=== PATIENT | male | born 1950 | race Caucasian/White ===

== ENCOUNTER 2022-05-08 16:17 | Emergency (ER) | payer OTHER, SELFPAY ==
[2022-05-08 16:40] VITALS: BP 164/90; PULSE 66; RESP 18; TEMP 36.4; O2SAT 97; BMI 25.0
--- NOTE | 2022-05-08 16:47 | DI.CT.S_ITS ---
PROCEDURE: CT FACIAL BONES WO CON INDICATIONS: facial trauma TECHNIQUE: Noncontrast 2.5 mm thick axial images acquired from the mandible through the frontal sinuses, with coronal and sagittal reformatting. For radiation dose reduction, the following was used: automated exposure control, adjustment of mA and/or kV according to patient size. COMPARISON: None. FINDINGS: Image quality: Excellent. Bones and teeth: Orbital patel are intact. Sinus patel show no fracture or deformity. Nasal bones and septum are intact. Visualized portions of the mandible demonstrate no fractures or subluxation. Zygomatic arches are intact. Pterygoid plates are intact. Visualized portions of the skull base and auditory canals are intact. Sinuses: Paranasal sinuses are aerated, without fluid levels, mucosal thickening, or mucoceles. Mastoid air cells are aerated. Soft tissues: No edema, masses, or fluid collections. No enlarged lymph nodes. No soft tissue lacerations or debris. Vascular: Visualized vascular structures appear normal in the absence of contrast. Bony vascular foramina and canals are intact. IMPRESSION: 1. No visible facial fractures. 2. No suspicious soft tissue or sinus fluid collections. Dictated by: Irina Floyd M.D. on 05/08/2022 at 17:54 Approved by: Irina Floyd M.D. on 05/08/2022 at 17:58
--- NOTE | 2022-05-08 17:06 | DI.CT.S_ITS ---
PROCEDURE: CT HEAD/BRAIN WO CON INDICATIONS: head injury, headache, nauseated TECHNIQUE: Noncontrast 4.5 mm thick angled axial sections acquired from the foramen magnum to the vertex, with coronal and sagittal reformats. For radiation dose reduction, the following was used: automated exposure control, adjustment of mA and/or kV according to patient size. COMPARISON: None. FINDINGS: Image quality: Excellent. CSF spaces: Basal cisterns are patent. No extra-axial fluid collections. The ventricles are symmetric in size and shape. Brain: No intracranial bleeds or masses. There is cerebral volume loss for age, with resultant ventricular and sulcal prominence. There are mild periventricular and deep white matter chronic small vessel ischemic changes. There is intracranial internal carotid artery atherosclerosis. Skull and face: Calvarium and visualized facial bones appear intact, without suspicious lesions. Sinuses: Visualized sinuses and mastoids are clear. IMPRESSION: 1. No CT evidence of acute intracranial trauma. 2. No significant soft tissue injury or underlying fracture. 3. Age-appropriate exam. Dictated by: Irina Floyd M.D. on 05/08/2022 at 17:51 Approved by: Irina Flody M.D. on 05/08/2022 at 17:52
[2022-05-08 19:32] VITALS: BP 147/84; PULSE 64; RESP 18; O2SAT 98
--- NOTE | 2022-05-08 19:55 | ED_ITS ---
HPI - Head Injury General Chief complaint: Head Injury Stated complaint: Hit head, Dizzy Time Seen by Provider: 05/08/22 17:37 Source: patient Mode of arrival: Ambulatory History of Present Illness HPI Narrative: Patient is a 71-year-old male. Not on anticoagulation who is here for evaluation for the injury that he sustained yesterday when he was moving a Morrison bed and fell off the wall and hit him on his head. He did cause him to fall down but he would no loss of consciousness. He is no vision changes. Does have discomfort on the left side of his face. Does feel somewhat dizzy. No headaches. No vomiting. He has had a history of seizures in the past but is not on any antiseizure medication has not had a seizure in many years. Related Data Home Medications Medication Instructions Recorded Confirmed cholecalciferol (vitamin D3) 50 50 mcg PO DAILY 11/27/21 03/04/22 mcg (2,000 unit) capsule dorzolamide 22.3 mg-timolol 6.8 1 drp EYE-BOTH BID 11/27/21 03/04/22 mg/mL eye drops ezetimibe 10 mg tablet 10 mg PO DAILY 11/27/21 03/04/22 fluorouracil 5 % topical cream 1 applic topical DAILY PRN 11/27/21 03/04/22 hydrochlorothiazide 25 mg tablet 25 mg PO DAILY 11/27/21 03/04/22 naproxen 500 mg tablet 500 mg PO DAILY PRN 11/27/21 03/04/22 Previous Rx's Medication Instructions Recorded tadalafil 5 mg tablet 2.5 mg PO DAILY #30 tabs 02/06/22 Allergies Allergy/AdvReac Type Severity Reaction Status Date / Time adhesive Allergy Mild swelling Verified 03/04/22 11:22 Review of Systems Constitutional Constitutional: Reports system reviewed and no additional complaints, except as documented Eyes Eyes: Reports system reviewed and no additional complaints, except as documented ENT Ears, Nose, Mouth, and Throat: Reports system reviewed and no additional complaints, except as documented Musculoskeletal Musculoskeletal: Reports system reviewed and no additional complaints, except as documented Integumentary/Breasts Skin/Breast: Reports system reviewed and no additional complaints, except as documented Neurologic Neurologic: Reports system reviewed and no additional complaints, except as documented Hematologic/Lymphatic On Anticoagulants: No Patient History Medical History BPH w urinary obs/LUTS Cervical somatic dysfunction Chronic low back pain Chronic neck pain Chronic thoracic back pain Cranial somatic dysfunction HTN (hypertension) Hyperlipidemia, mixed Lumbar region somatic dysfunction Pelvic somatic dysfunction Sacral region somatic dysfunction Segmental and somatic dysfunction of abdomen and other regions Short leg syndrome, left, acquired Somatic dysfunction of lower extremity Thoracic region somatic dysfunction Whiplash injury syndrome Family History (Updated 11/27/21 @ 10:19 by Venkat Lehman DO) Father No problems noted. Mother Supranuclear palsy Social History Smoking Status: Never smoker Smoking Status: Never smoker alcohol intake frequency: a few times a week Substance Use Type: does not use Exam Initial Vital Signs Initial Vital Signs: Vital Signs Temperature 97.5 F L 05/08/22 16:40 Pulse Rate 66 05/08/22 16:40 Respiratory Rate 18 05/08/22 16:40 Blood Pressure 164/90 H 05/08/22 16:40 Pulse Oximetry 97 05/08/22 16:40 Oxygen Delivery Method 05/08/22 16:40 Const General: cooperative, comfortable and No ill appearing [facility] Head: normal to inspection and normocephalic Eyes General: Yes appearance normal, both eyes and all related structures Skin General: no rashes or lesions noted Neuro General: patient alert, patient awake, patient oriented x3 and moves all extremities Cognition: normal cognition Speech: speech normal Gait: normal gait Extrem General: normal to inspection and capillary refill normal Scores GCS [place] coma scale eye opening: Spontaneous [place] coma scale verbal response: Orientated [place] coma scale motor response: Obey commands [place] coma scale total score: 15 Course Orders Ordered: ED Orders 05/08/22 16:47 CT facial bones wo con Stat 05/08/22 17:06 CT head/brain wo con Stat Vital Signs Vital signs: Vital Signs - 8 hr 05/08/22 16:40 05/08/22 19:32 Temperature 97.5 F L Pulse Rate 66 64 Respiratory Rate 18 18 Blood Pressure 164/90 H 147/84 H Pulse Oximetry 97 98 Oxygen Delivery Method Room Air Room Air MDM - Head Injury Imaging Data CT scan - head: Radiologist's Impression: [address] [address] [address] Scan Report Signed Patient: Garrett Pope MR#: [id number] : 1950 Acct:[id number] Age/Sex: 71 / M Date of Service: 05/08/22 Loc: ED Accession Number: [id number] ?? Procedure: CT head/brain wo con Ordering Provider: Evens Contreras D.O. PROCEDURE:? CT HEAD/BRAIN WO CON ? INDICATIONS:? head injury, headache, nauseated ? TECHNIQUE:? Noncontrast 4.5 mm thick angled axial sections acquired from the foramen magnum to the vertex, with coronal and sagittal reformats.? For radiation dose reduction, the following was used:? automated exposure control, adjustment of mA and/or kV according to patient size.? ? COMPARISON:? None. ? FINDINGS:? Image quality:? Excellent.? ? CSF spaces:? Basal cisterns are patent.? No extra-axial fluid collections.? The ventricles are symmetric in size and shape.? ? Brain:? No intracranial bleeds or masses.? There is cerebral volume loss for age, with resultant ventricular and sulcal prominence.? There are mild periventricular and deep white matter chronic small vessel ischemic changes.? There is intracranial inte rnal carotid artery atherosclerosis.? ? Skull and face:? Calvarium and visualized facial bones appear intact, without suspicious lesions.? ? Sinuses:? Visualized sinuses and mastoids are clear.? ? IMPRESSION:? ? 1. No CT evidence of acute intracranial trauma. ? 2. No significant soft tissue injury or underlying fracture.? ? 3. Age-appropriate exam.? ? ? Dictated by: Irina Floyd M.D. on 05/08/2022 at 17:51 ? ? Approved by: Irina Floyd M.D. on 05/08/2022 at 17:52?? CT face: Radiologist's Impression: [place] [address] CT Scan Report Signed Patient: Garrett Pope MR#: [id number] : 1950 Acct:[id number] Age/Sex: 71 / M Date of Service: 05/08/22 Loc: ED Accession Number: [id number] ?? Procedure: CT facial bones wo con Ordering Provider: Evens Contreras D.O. PROCEDURE:? CT FACIAL BONES WO CON ? INDICATIONS:? facial trauma ? TECHNIQUE:? Noncontrast 2.5 mm thick axial images acquired from the mandible through the frontal sinuses, with coronal and sagittal reformatting.? For radiation dose reduction, the following was used:? automated exposure control, adjustment of mA and/or kV according to patient size.? ? COMPARISON:? None. ? FINDINGS:? Image quality:? Excellent.? ? Bones and teeth:? Orbital patel are intact.? Sinus patel show no fracture or deformity.? Nasal bones and septum are intact.? Visualized portions of the mandible demonstrate no fractures or subluxation.? Zygomatic arches are intact.? Pterygoid plates are intact.? Visualized portions of the skull base and auditory canals are intact.? ? Sinuses:? Paranasal sinuses are aerated, without fluid levels, mucosal thickening, or mucoceles.? Mastoid air cells are aerated.? ? Soft tissues:? No edema, masses, or fluid collections.? No enlarged lymph nodes.? No soft tissue lacerations or debris.? ? Vascular:? Visualized vascular structures appear normal in the absence of contrast.? Bony vascular foramina and canals are intact.? ? IMPRESSION:? ? 1. No visible facial fractures. ? 2. No suspicious soft tissue or sinus fluid collections.? ? ? Dictated by: Irina Floyd M.D. on 05/08/2022 at 17:54 ? ? Approved by: Irina Floyd M.D. on 05/08/2022 at 17:58? MDM Narrative Medical decision making narrative: GCS of 15. CT scans are negative for any acute pathology. Did discuss the potential of a concussion. No further workup required in the emergency department. He was given return precautions and follow-up instructions. He expressed understanding and agreement. Discharge Plan Departure Patient Disposition: Home Clinical Impression: Closed head injury Instructions: DI for Closed Head Injury Activity Restrictions/Additional Instructions: You can take Tylenol or ibuprofen for any discomfort. You have no restrictions on any activities. Contact your primary doctor for follow-up. Return to the emergency department for any new or worsening symptoms. Prescriptions: No Action tadalafil 5 mg tablet 2.5 mg PO DAILY Qty: 30 4RF hydrochlorothiazide 25 mg tablet 25 mg PO DAILY naproxen 500 mg tablet 500 mg PO DAILY PRN dorzolamide-timolol 22.3-6.8 mg/mL drops 1 drp EYE-BOTH BID ezetimibe 10 mg tablet 10 mg PO DAILY fluorouracil 5 % cream 1 applic topical DAILY PRN cholecalciferol (vitamin D3) 50 mcg (2,000 unit) capsule 50 mcg PO DAILY Referrals: Venkat Lehman DO [Primary Care Provider] -
== END 2022-05-08 20:05 | disposition home or self-care (01) ==
PROVIDERS: Emergency Provider Emergency Medicine; PCP Family Medicine
DX: S09.90XA Unspecified injury of head, initial encounter (principal); W18.30XA Fall on same level, unspecified, initial encounter
CPT/HCPCS: 70450; 70486; 99281; 99284

== ENCOUNTER → 2022-10-07 10:44 | Outpatient (CLI) | payer OTHER, SELFPAY ==
[2022-10-07 11:28] LABS: Add Manual Diff / Slide Review NO; Basophils Absolute Auto 0 /uL (0-100); Basophils Percent Auto 0.5 % (0-2); Eosinophils Absolute Auto 100 /uL (0-450); Eosinophils Percent Auto 1.8 % (2-4); Hematocrit 48.3 % (41-53); Hemoglobin 16.6 g/dL (13.5-17.5); Lymphocytes Absolute Auto 1700 /uL (1100-4500); Lymphocytes Percent Auto 30.2 % (25-40); Mean Corpuscular HGB Conc 34.3 % (30-36); Mean Corpuscular Hemoglobin 30.7 PG (26-34); Mean Corpuscular Volume 89.4 fL (80-100); Monocytes Absolute Auto 600 /uL (0-900); Monocytes Percent Auto 10.9 % (3-14); Neutrophils Absolute Auto 3200 /uL (1500-7000); Neutrophils Percent Auto 56.6 % (50-75); Platelet Count 199 X10^3/uL (150-400); Red Cell Distribution Width 12.8 % (11.6-14.8); White Blood Cell Count 5.7 X10^3/uL (4.5-11.0)
[2022-10-07 11:45] LABS: Alanine Aminotransferase 47 IU/L (<50); Albumin 4.8 g/dL (3.5-5.0); Albumin Globulin Ratio 1.4 (1.0-2.8); Alkaline Phosphatase 58 U/L (38-126); Aspartate Aminotransferase 37 IU/L (17-59); BUN Creatinine Ratio 14.3 (6-22); Bilirubin Total 0.8 mg/dL (0.2-1.3); Blood Urea Nitrogen 13 mg/dL (9-20); Calcium 9.5 mg/dL (8.4-10.2); Carbon Dioxide 34 mmol/L (22-32); Chloride 97 mmol/L (98-107); Cholesterol 180 mg/dL (140-199); Estimated Glomerular Filt Rate > 60 mL/min (>60); Globulin 3.5 g/dL (1.7-4.1); Glucose 93 mg/dL (80-110); HDL Cholesterol 31 mg/dL (40-60); HEMOLYSIS < 15 (0-50); LDL Cholesterol Calculated 122 mg/dL (<100); Sodium 138 mmol/L (137-145); Total Protein 8.3 g/dL (6.3-8.2); Triglycerides 135 mg/dL (35-150)
[2022-10-07 12:14] LABS: Prostate Specific Antigen Scrn 2.66 ng/mL (0.1-4.0)
== END ==
PROVIDERS: PCP Family Medicine; Referring Provider Family Medicine; Visit Provider Family Medicine
DX: E78.2 Mixed hyperlipidemia (principal); N40.1 Benign prostatic hyperplasia with lower urinary tract symptoms; N13.8 Other obstructive and reflux uropathy; Z12.11 Encounter for screening for malignant neoplasm of colon; Z12.5 Encounter for screening for malignant neoplasm of prostate
CPT/HCPCS: 36415; 80053; 80061; 85025; G0103

== ENCOUNTER → 2023-01-14 13:33 | Outpatient (CLI) | payer OTHER, SELFPAY ==
[2023-01-14 15:59] LABS: Erythrocyte Sedimentation Rate 2 MM/HR (0-15)
[2023-01-14 16:03] LABS: BUN Creatinine Ratio 15.2 (6-22); Blood Urea Nitrogen 14 mg/dL (9-20); C-Reactive Protein Quant < 0.5 mg/dL (<1.0); Calcium 9.7 mg/dL (8.4-10.2); Carbon Dioxide 27 mmol/L (22-32); Chloride 98 mmol/L (98-107); Creatine Kinase 139 U/L (55-170); Estimated Glomerular Filt Rate > 60 mL/min (>60); Glucose 100 mg/dL (80-110); HEMOLYSIS < 15 (0-50); Potassium 3.9 mmol/L (3.4-5.1); Sodium 137 mmol/L (137-145)
== END ==
PROVIDERS: Physician Assistant; PCP Family Medicine; Referring Provider Family Medicine; Visit Provider Family Medicine
DX: M35.3 Polymyalgia rheumatica (principal)
CPT/HCPCS: 36415; 80048; 82550; 85651; 86140

== ENCOUNTER → 2023-04-05 18:39 | Outpatient (CLI) | payer OTHER, SELFPAY ==
--- NOTE | 2023-04-05 18:41 | DI.MRI.S_ITS ---
PROCEDURE: MR SHOULDER LT WO/W CON INDICATIONS: Shoulder pain TECHNIQUE: Noncontrast oblique coronal T1 spin echo and T2 fast spin echo with fat saturation, oblique sagittal T1 spin echo and T2 fast spin echo with fat saturation, axial T1 spin echo and T2 fast spin echo with fat saturation through the shoulder. Post-contrast oblique coronal, oblique sagittal, and axial T1 spin echo with fat saturation through the shoulder. COMPARISON: [facility], CR, XR SHOULDER 2+ VIEWS BILATERAL, 03/16/2023, 11:33. FINDINGS: Image quality: Excellent. Rotator cuff: There is [id number] supraspinatus, infraspinatus and subscapularis tendinosis. There is low-grade partial-thickness tear of the supraspinatus tendon involving both articular and bursal surface from the musculotendinous junction to footprint. Sagittal images demonstrate no muscle atrophy. Bones and bursae: No suspicious bone marrow enhancement. No bone marrow contusions or fractures. [id number] glenohumeral joint degeneration with cartilage loss, joint space narrowing and subchondral cyst formation. Mild acromioclavicular joint degeneration. The acromion demonstrates conventional anatomy, without an os acromiale. Small glenohumeral joint effusion. Capsule and soft tissues: No suspicious soft tissue enhancement. Degenerative labral tear, most pronounced in the anterior inferior labrum. Mild tendinosis of the long head of the biceps, which demonstrate normal morphology and location. The rotator interval appears irregular with fibrosis, without fibrosis. The coracohumeral ligament is thickened. IMPRESSION: 1. There is hylu-ju-cddtrotc rotator cuff tendinosis. Low-grade partial thickness tear is present in the supraspinatus tendon along the articular, as well as bursal surface. No tendon rupture or rotator cuff muscle atrophy. 2. Osteoarthritic changes of the glenohumeral joint and acromioclavicular joint. 3. Degenerative labral tearing. 4. Irregular rotator interval with fibrosis. The coracohumeral ligament is thickened. The findings are associated with adhesive capsulitis. 5. Small glenohumeral joint effusion. Dictated by: Vandana Rodriguez M.D. on 04/06/2023 at 7:27 Approved by: Vandana Rodriguez M.D. on 04/06/2023 at 10:17
== END ==
PROVIDERS: PCP Family Medicine; Referring Provider Internal Medicine Rheumatology; Visit Provider Internal Medicine Rheumatology
DX: M12.9 Arthropathy, unspecified (principal); M75.112 Incomplete rotator cuff tear or rupture of left shoulder, not specified as traumatic; S43.402A Unspecified sprain of left shoulder joint, initial encounter; M25.412 Effusion, left shoulder
CPT/HCPCS: 73223

== ENCOUNTER → 2023-12-10 15:39 | Outpatient (CLI) | payer OTHER, SELFPAY ==
[2023-12-10 17:40] LABS: Add Manual Diff / Slide Review NO; Basophils Absolute Auto 0 /uL (0-100); Basophils Percent Auto 0.5 % (0-2); Eosinophils Absolute Auto 100 /uL (0-450); Eosinophils Percent Auto 0.9 % (2-4); Hematocrit 48.6 % (41-53); Hemoglobin 16.6 g/dL (13.5-17.5); Lymphocytes Absolute Auto 1900 /uL (1100-4500); Lymphocytes Percent Auto 30.3 % (25-40); Mean Corpuscular HGB Conc 34.2 % (30-36); Mean Corpuscular Hemoglobin 32.2 PG (26-34); Mean Corpuscular Volume 94.3 fL (80-100); Monocytes Absolute Auto 600 /uL (0-900); Monocytes Percent Auto 9.1 % (3-14); Neutrophils Absolute Auto 3600 /uL (1500-7000); Neutrophils Percent Auto 59.2 % (50-75); Platelet Count 244 X10^3/uL (150-400); Red Blood Cell Count 5.16 X10^6/uL (4.5-5.9); Red Cell Distribution Width 12.9 % (11.6-14.8); White Blood Cell Count 6.1 X10^3/uL (4.5-11.0)
[2023-12-10 17:52] LABS: Alanine Aminotransferase 29 IU/L (<50); Albumin 5.1 g/dL (3.5-5.0); Albumin Globulin Ratio 1.5 (1.0-2.8); Alkaline Phosphatase 59 U/L (38-126); Aspartate Aminotransferase 41 IU/L (17-59); BUN Creatinine Ratio 14.1 (6-22); Bilirubin Total 1.1 mg/dL (0.2-1.3); Blood Urea Nitrogen 14 mg/dL (9-20); Calcium 9.9 mg/dL (8.4-10.2); Carbon Dioxide 29 mmol/L (22-32); Chloride 98 mmol/L (98-107); Cholesterol 223 mg/dL (140-199); Estimated Glomerular Filt Rate > 60 mL/min (>60); Globulin 3.3 g/dL (1.7-4.1); Glucose 88 mg/dL (80-110); HDL Cholesterol 36 mg/dL (40-60); HEMOLYSIS < 15 (0-50); LDL Cholesterol Calculated 169 mg/dL (<100); Potassium 3.7 mmol/L (3.4-5.1); Sodium 138 mmol/L (137-145); Total Protein 8.4 g/dL (6.3-8.2); Triglycerides 88 mg/dL (35-150)
[2023-12-10 18:22] LABS: Prostate Specific Antigen Scrn 3.18 ng/mL (0.1-4.0)
== END ==
PROVIDERS: PCP Family Medicine; Referring Provider Family Medicine; Visit Provider Family Medicine
DX: Z12.5 Encounter for screening for malignant neoplasm of prostate (principal); E78.2 Mixed hyperlipidemia; I10 Essential (primary) hypertension
CPT/HCPCS: 36415; 80053; 80061; 85025; G0103

== ENCOUNTER 2023-12-24 11:07 | Day surgery (SDC) | payer OTHER, SELFPAY ==
--- NOTE | 2023-12-24 | PATH_ITS ---
[facility] Accession Number: [id number] No. of containers..01 Tissue . 01 Material submitted: . esophagus, E-G Junction - GE JUNCTION . 01 Diagnosis: GASTROESOPHAGEAL JUNCTION, BIOPSY: Squamous and columnar mucosa with no diagnostic abnormality. Negative for intestinal metaplasia. Negative for dysplasia and malignancy. [facility] 12/28/2023 1514 Local . 01 Electronically signed: . Willow Franklin MD, Pathologist NPI- [id number] . 01 Gross description: . Received in formalin, labeled with two patient identifiers and GE junction, are two stevenson soft tissue fragments measuring 0.2-0.3 cm in greatest dimension. Submitted in cassette A1. ([id number]) /FRR 12/25/2023 1247 Local . 01 Pathologist provided ICD-10: K21.9 . 01 CPT . 692687 Specimen Comment: A courtesy copy of this report has been sent to [phone] Performed at: [address] [address], [place], [place] [id number] MD Davian Corral MD Phone: [phone]
[2023-12-24 11:37] VITALS: BP 153/91; PULSE 83; RESP 17; TEMP 36.4; O2SAT 95
[2023-12-24] MEDS: LACTATED RINGERS 1,000 ML 42 ML IV (11:39)
--- NOTE | 2023-12-24 12:08 | PM.HP.1 ---
History of Present Illness History of Present Illness Date Patient Seen: 12/24/23 Time Patient Seen: 12:08 Chief complaint: EGD & Colonoscopy Narrative: 73-year-old male here for diagnostic esophagogastroduodenoscopy and screening colonoscopy. History of reflux and esophageal dysphagia he has been dilated once. He has recurrent esophageal dysphagia occasionally food become stuck in his lower esophagus. Last colonoscopy approximately 10 years ago. [facility] Medical History Depression Screen for colon cancer Somatic dysfunction of lower extremity Segmental and somatic dysfunction of abdomen and other regions Pelvic somatic dysfunction Sacral region somatic dysfunction Lumbar region somatic dysfunction Thoracic region somatic dysfunction Cervical somatic dysfunction Cranial somatic dysfunction Chronic neck pain Whiplash injury syndrome Short leg syndrome, left, acquired HTN (hypertension) BPH w urinary obs/LUTS Hyperlipidemia, mixed Chronic low back pain Chronic thoracic back pain Family History Father No problems noted. Mother Supranuclear palsy Social History Smoking Status: Never smoker alcohol intake: current Meds Home Medications and Allergies Home Medications Medication Instructions Recorded Confirmed Type cholecalciferol (vitamin D3) 50 50 mcg PO DAILY 11/27/21 12/24/23 History mcg (2,000 unit) capsule dorzolamide 22.3 mg-timolol 6.8 1 drp EYE-BOTH BID 11/27/21 12/24/23 History mg/mL eye drops naproxen 500 mg tablet 500 mg PO DAILY PRN Pain (Scale 11/27/21 12/24/23 History Score 1-3) fluorouracil 5 % topical cream 1 applic topical DAILY PRN Scalp 05/25/23 12/24/23 Rx rash #40 grams hydrochlorothiazide 25 mg tablet 25 mg PO DAILY #90 tabs 09/28/23 12/24/23 Rx sulfasalazine 500 mg tablet 1.5 g PO BID 12/10/23 12/24/23 History (Azulfidine) tadalafil 10 mg tablet 10 mg PO DAILY LUTS #30 tabs 12/10/23 12/10/23 Rx tamsulosin 0.4 mg capsule 0.4 mg PO BEDTIME LUTS #90 caps 12/10/23 12/10/23 Rx tizanidine 2 mg tablet 2 mg PO Q8H PRN muscle spasticity 12/13/23 Rx #90 tabs ezetimibe 10 mg tablet (Zetia) 10 mg PO DAILY 12/24/23 12/24/23 History Allergies Allergy/AdvReac Type Severity Reaction Status Date / Time adhesive Allergy Mild swelling Verified 12/10/23 14:58 Exam Vital Signs (past 8 hours): - 12/24/23 11:37 Temperature 97.6 F Pulse Rate 83 Respiratory Rate 17 Blood Pressure 153/91 H Pulse Oximetry 95 Oxygen Delivery Method Room Air Oxygen Delivery Method Room Air Narrative Exam Narrative: General adult man alert oriented no acute distress Chest nonlabored respiration Extremities warm well perfused Assessment & Plan Assessment & Plan narrative: 73-year-old man with esophageal dysphagia here for diagnostic upper endoscopy with possible dilation and screening colonoscopy. Overview of procedures risks benefits and alternatives reviewed. He provides his written and verbal consent to proceed. Time-Based Coding :: [TOTAL MINUTES] spent with patient and on the chart (including review of chart, obtaining history, exam, reviewing outside data, placing orders, documenting exam and treatment plan, and counseling patient) on [DATE].
--- NOTE | 2023-12-24 12:08 | SUR.OPER ---
EGD SCOPE 282
[2023-12-24 12:38] VITALS: BP 107/76; PULSE 76; RESP 13; TEMP 36.1; O2SAT 95
--- NOTE | 2023-12-24 12:40 | PM.OP.EC ---
Operative Date/Time/Diagnoses Date of procedure: 12/24/23 Time of procedure: 12:40 Pre-op diagnosis: Esophageal dysphagia, screening colonoscopy Procedure & Clinicians Study performed: Esophagogastroduodenoscopy and screening colonoscopy Same procedure as scheduled: Yes Indications: Esophageal dysphagia, colorectal screening Surgeon: Rupert Knapp Procedure Notes Procedure in detail: The history and physical was performed/updated and the patient is ASA class is 2. The procedure was discussed in detail with the patient. Potential risks complications including infection, bleeding, missed diagnosis, perforation, need for surgery, and were explained. Their questions were answered and informed consent was obtained. Patient placed in left lateral decubitus position. Time out was performed. Procedural sedation was administered by Anesthesia. A bite block was placed. the scope was inserted into the mouth and advanced through the esophagus and into the stomach. the pylorus was intubated and the duodenum was examined to the 2nd portion.. The scope was retroflexed within the stomach. The stomach was then decompressed and scope pulled back to the GE junction which was biopsied with forceps. The scope was then removed Examination began with a thorough inspection of the perianal area there was no evidence of fissures, fistulae, external hemorrhoids or cutaneous malignancy. The colonoscopy scope was then placed into the anal canal and was advanced to the cecum, which was identified by the ileocecal valve, the appendiceal orifice and the confluence of the taenia. The scope was then slowly withdrawn examining colon thoroughly in all directions, irrigating it of any residual stool. FINDINGS -evidence of prior distal esophageal stricture. Presently the site of stricture is widely patent scope easily passes from esophagus and stomach estimate that it is approximately 2 cm in diameter. -diverticulosis of the colon throughout. -no polyps The patient tolerated the procedure well. They will be discharged once criteria are met. The prep was of good/excellent quality. The withdrawl time was 6 minutes. Specimen(s): other (GE junction) Impression: Diverticulosis Post-procedure Plan for aftercare: No need for further screening colonoscopy. If swallowing worsens we can repeat the upper endoscopy with dilation but as is would not benefit from dilation Disposition: same day surgery
[2023-12-24 12:43] VITALS: BP 106/75; PULSE 74; RESP 13; O2SAT 95
[2023-12-24 12:49] VITALS: BP 117/74; PULSE 80; RESP 15; TEMP 36.3; O2SAT 96
[2023-12-24 12:53] VITALS: BP 118/87; PULSE 76; RESP 17; TEMP 36.3; O2SAT 97
== END 2023-12-24 13:15 | disposition home or self-care (01) ==
PROVIDERS: PCP Family Medicine; Referring Provider Surgery; Visit Provider Surgery
PROC: 0DJ08ZZ Inspection of Upper Intestinal Tract, Via Natural or Artificial Opening Endoscopic (ICD-10-PCS; CPT 43235; principal; 2023-12-24 12:15)
PROC: 0DJD8ZZ Inspection of Lower Intestinal Tract, Via Natural or Artificial Opening Endoscopic (ICD-10-PCS; CPT 45378; 2023-12-24 12:15)
DX: Z12.11 Encounter for screening for malignant neoplasm of colon (principal); R13.14 Dysphagia, pharyngoesophageal phase; K57.30 Diverticulosis of large intestine without perforation or abscess without bleeding
CPT/HCPCS: 45378; 43235; J2704

== ENCOUNTER → 2024-03-17 10:33 | Outpatient (CLI) | payer OTHER, SELFPAY ==
[2024-03-17 12:30] LABS: Cholesterol 206 mg/dL (140-199); HDL Cholesterol 40 mg/dL (40-60); LDL Cholesterol Calculated 150 mg/dL (<100); Triglycerides 78 mg/dL (35-150)
== END ==
PROVIDERS: PCP Family Medicine; Referring Provider Family Medicine; Visit Provider Family Medicine
DX: E78.2 Mixed hyperlipidemia (principal)
CPT/HCPCS: 36415; 80061

== ENCOUNTER → 2024-06-29 07:03 | Outpatient (CLI) | payer OTHER, SELFPAY ==
[2024-06-29 08:40] LABS: Cholesterol 129 mg/dL (140-199); HDL Cholesterol 31 mg/dL (40-60); LDL Cholesterol Calculated 76 mg/dL (<100); Triglycerides 109 mg/dL (35-150)
== END ==
LOC: LAB 07:04
PROVIDERS: PCP Family Medicine; Referring Provider Family Medicine; Visit Provider Family Medicine
DX: E78.2 Mixed hyperlipidemia (principal)
CPT/HCPCS: 36415; 80061

== ENCOUNTER → 2024-09-26 19:02 | Outpatient (CLI) | payer OTHER, SELFPAY ==
--- NOTE | 2024-09-26 19:07 | DI.MRI.S_ITS ---
PROCEDURE: MR SHOULDER LT WO/W CON INDICATIONS: Arthropathic psoriasis, unspecified - left shoulder TECHNIQUE: Noncontrast oblique coronal T1 spin echo and T2 fast spin echo with fat saturation, oblique sagittal T1 spin echo and T2 fast spin echo with fat saturation, axial T1 spin echo and T2 fast spin echo with fat saturation through the shoulder. Post-contrast oblique coronal, oblique sagittal, and axial T1 spin echo with fat saturation through the shoulder. COMPARISON: [facility], , MR SHOULDER LT WO/W CON, 04/05/2023, 18:47. FINDINGS: Image quality: Excellent. Rotator cuff: Low to moderate grade articular and bursal surface partial thickness tear involving distal supraspinatus is seen extending to musculotendinous junction. Low-grade articular surface partial-thickness tear involving distal infraspinatus at its insertion on humeral head is also seen. Distal subscapularis tendinosis. No full-thickness rotator cuff tendon rupture. Sagittal images demonstrate mild supraspinatus muscle atrophy. Bones and bursae: Nrfn-[id number] acromioclavicular joint and glenohumeral joint osteoarthritic changes are seen. Subcortical T2 hyperintense signal involving distal clavicle adjacent to acromioclavicular joint. Subcortical T2 hyperintense signal are also seen scattered in inferior aspect of glenoid. Mild contrast enhancement within above-mentioned area of T2 hyperintense signal are seen. Erosion secondary to inflammatory arthropathy is suspected. No fracture or dislocation. Type 2 acromion without an os acromiale. Small amount of subacromial subdeltoid bursal fluid is seen, no loose bodies. No abnormal synovial thickening or enhancement is seen. Capsule and soft tissues: No suspicious soft tissue enhancement. There is subtle signal abnormality and fraying involving posterior superior glenoid labrum consistent with posterior superior labral tear. Similar signal abnormality and fraying involving anterior inferior glenoid labrum is also seen with adjacent tiny 5 mm perilabral cyst. The long head of the biceps tendon demonstrates normal location and morphology. The rotator interval appears normal, without fibrosis. The coracohumeral ligament is normal in thickness. IMPRESSION: 1. Cbbd-px-grsjqyjt acromioclavicular joint and glenohumeral joint osteoarthritic changes. No fracture or dislocation. Subcortical T2 hyperintense signal involving distal clavicular head and inferior portion of glenoid with mild contrast enhancement concerning for erosion secondary to inflammatory arthropathy. 2. Small amount of joint effusion and subacromial subdeltoid bursal fluid. No abnormal synovial thickening or enhancement to suggest synovitis. 3. Low to moderate grade articular and bursal surface partial thickness tear involving distal supraspinatus extending to musculotendinous junction. Low-grade articular surface partial-thickness tear involving distal infraspinatus. Distal subscapularis tendinosis. No full-thickness rotator cuff tendon rupture. Mild supraspinatus muscle atrophy. 4. Suggestion of posterior superior glenoid labral tear and anterior inferior glenoid labral tear. Small perilabral cyst is seen adjacent to inferior labrum. Dictated by: Richard Turner M.D. on 09/27/2024 at 20:35 Approved by: Richard Turner M.D. on 09/27/2024 at 20:41
--- NOTE | 2024-09-26 19:08 | DI.MRI.S_ITS ---
PROCEDURE: MR HIP RT WO/W CON INDICATIONS: Arthropathic psoriasis, unspecified - right hip TECHNIQUE: Noncontrast coronal T1 spin echo and STIR through the bony pelvis. Coronal and axial T2 fast spin echo with fat saturation, axial T1 spin echo with fat saturation, sagittal T1 spin echo, and oblique axial T2 fast spin echo with fat saturation through the hip. Post-contrast axial, coronal, and sagittal spin echo with fat saturation through the hip. COMPARISON: None. FINDINGS: Image quality: Excellent. Bones and joints: Moderate bilateral hip joint osteoarthritic changes are seen with superior joint space narrowing, subchondral sclerosis and marginal osteophyte formation. No marrow edema. No acute fracture or dislocation. No evidence of avascular necrosis of femoral head. Mild degenerative disc disease in visualized lower lumbar spine is seen. Subcortical T2 hyperintense signal and overlying cortical thinning involving medial aspect of right femoral head and show contrast enhancement concerning for bony erosion in this area. Similar erosion in adjacent anterior lateral aspect of right acetabulum is also seen. Tendons and ligaments: Distal right gluteus medius and minimus tendinosis at their insertions on greater trochanter is seen. The nearby proximal iliotibial band also appears intact. The iliopsoas tendon appears intact, without adjacent bursal fluid collections or evidence for impingement syndrome. Mild tendinosis involving right hamstring tendon origins at ischial tuberosity is seen. Labrum and cartilage: Diffuse loss of articulating cartilage over right femoral head is seen. There is fraying of superior anterior right acetabular labrum with T2 hyperintense signal suggestive of superior anterior labral tear. Soft tissues: No suspicious soft tissue enhancement. Visualized muscles demonstrate normal bulk and internal signal. Quadratus femoris muscle demonstrates no internal edema to suggest ischiofemoral impingement. The proximal sciatic neurovascular bundle appears normal adjacent to the hamstring tendons. No free pelvic fluid. Bladder wall thickness is normal. Genitourinary structures and bowel loops appear normal where visualized. IMPRESSION: 1. Signal abnormality and enhancement involving medial aspect of right femoral head and adjacent anterior lateral aspect of right acetabulum concerning for erosion secondary to inflammatory arthropathy. 2. Moderate bilateral hip joint osteoarthritis. No fracture or dislocation. No other area of abnormal intraosseous enhancement or marrow signal abnormality. No evidence of avascular necrosis of femoral head. 3. Distal right gluteus medius and minimus tendinosis. Tendinosis involving right hamstring tendon origins at ischial tuberosity. No enhancing soft tissue mass or drainable fluid collection. No abnormal bursal fluid collection. 4. Suggestion of extensive superior anterior right acetabular labral tear. Dictated by: Richard Turner M.D. on 09/27/2024 at 11:41 Approved by: Richard Turner M.D. on 09/27/2024 at 11:50
== END ==
LOC: MRI 19:03
PROVIDERS: PCP Family Medicine; Referring Provider Internal Medicine Rheumatology; Visit Provider Internal Medicine Rheumatology
DX: L40.50 Arthropathic psoriasis, unspecified (principal); M16.0 Bilateral primary osteoarthritis of hip; R93.6 Abnormal findings on diagnostic imaging of limbs; M19.012 Primary osteoarthritis, left shoulder; M25.412 Effusion, left shoulder; M75.112 Incomplete rotator cuff tear or rupture of left shoulder, not specified as traumatic; M62.512 Muscle wasting and atrophy, not elsewhere classified, left shoulder; M25.812 Other specified joint disorders, left shoulder
CPT/HCPCS: 73223; 73723; A9579

== ENCOUNTER 2024-11-03 09:45 | Outpatient (RCR) | payer OTHER, SELFPAY ==
--- NOTE | 2024-10-13 15:37 | PT.OIE ---
Current Diagnoses Other chronic pain (10/13/24) Pain in left shoulder (10/13/24) Pain in right hip (10/13/24) Cervicalgia (10/13/24) Sprain of ligaments of cervical spine, sequela (10/13/24) Past Medical History (Last Updated 07/03/24 @ 13:17 by Venkat Lehman DO) BPH w urinary obs/LUTS Cervical somatic dysfunction Chronic low back pain Chronic neck pain Chronic thoracic back pain Cough productive of purulent sputum Cranial somatic dysfunction Depression HTN (hypertension) Hyperlipidemia, mixed Lumbar region somatic dysfunction Pelvic somatic dysfunction Sacral region somatic dysfunction Screen for colon cancer Segmental and somatic dysfunction of abdomen and other regions Short leg syndrome, left, acquired Somatic dysfunction of lower extremity Thoracic region somatic dysfunction Whiplash injury syndrome Visit Care Team Role Provider Type Venkat Lehman DO Attending Provider Physician Family Provider Primary Care Provider Referring Provider Specialty: Family Practice Address: [address] [place] [address] Email: Physical Therapy Initial Evaluation PT-OP-A Visit Information Start: 10/13/24 12:44 Freq: Status: Active Protocol: Document 10/13/24 12:46 KW (Rec: 10/13/24 15:36 KW Laptop) Out-Patient Physical Therapy Visit Information Visit Information Visit Type Initial Evaluation Visit Note 6 PT visits approved to start Visit Start Time 09:45 Visit Stop Time 10:30 Visit Number 1/ approved Evaluation Information Evaluation Date 10/13/24 Precautions Precautions none PT-OP-B Current Condition Start: 10/13/24 12:44 Freq: Status: Active Protocol: Document 10/13/24 12:46 KW (Rec: 10/13/24 15:36 KW Laptop) Current Condition History of Current Condition Onset Date chronic Current Complaints B shoulder B hips, spine History of Current patient with dx of psoriatic arthritis, comes to PT Condition carrying results from L shoulder MRI and hip MRI showing 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 His pain is such that it has impacted his sleep, no longer can swim in the pool due to shoulder pain. He is being followed by rheumatology, is taking medication for the arthritis as well as Yokasta injections. He has a difficult time getting into see his provider. He also reports a trauma in younger years that caused compression Fx of T-spine and a Sx disorder back in the 80s. He is retired, [employer]- [employer]. Prior Treatments and prior PT at [facility] for the spine pain Tests Future Testing and December, back to rheumatology Treatments Planned PT-OP-C Subjective Start: 10/13/24 12:44 Freq: Status: Active Protocol: Document 10/13/24 12:46 KW (Rec: 10/13/24 15:36 KW Laptop) Patient Questionnaires Lower Extremity Functional Scale LEFS Score 36 LEFS Impairment 40 to 59% Impaired (Score 32-47) Quick Dash- Upper Extremity Quick Dash UE Score 29.5 Quick Dash UE 20 to 39% Impaired (Score 20-39) Impairment OP-PT Pain Assessment Location T spine Intensity 8 Scale Used Numeric (0 - 10) Description Aching,Burning,Cramping Frequency Frequent Pain Aggravating Position,ADL's,Activity,Exercise,Standing,Sitting, Factors Walking Hips Intensity 5 Scale Used Numeric (0 - 10) Description Aching,Burning,Cramping,Dull L shoulder Intensity 8 Scale Used Numeric (0 - 10) Description Aching,Burning,Cramping,Dull PT-OP-E Functional Tests Start: 10/13/24 12:44 Freq: Status: Active Protocol: Document 10/13/24 12:46 KW (Rec: 10/13/24 15:36 KW Laptop) Functional Tests Apley's Scratch Test Action 1- Left pain Action 1- Right no pain Action 2- Left pain Action 2- Right no pain Action 3- Left pain Action 3- Right no pain PT-OP-F Manual Assessment Start: 10/13/24 12:44 Freq: Status: Active Protocol: Document 10/13/24 12:46 KW (Rec: 10/13/24 15:36 KW Laptop) Manual Assessments Joint Mobility Assessment Joint Mobility pain at end of joint ROM hip flexion, IR/ER R Assessment pain at end range L shoulder FF/ABD/ER/IR PT-OP-G Mobility & Gait Start: 10/13/24 12:44 Freq: Status: Active Protocol: Document 10/13/24 12:46 KW (Rec: 10/13/24 15:36 KW Laptop) OP Gait Assessment Assistive Devices Assistive Device None Gait Deviations General Gait Pattern Antalgic,Decreased Stride Length Comments Gait Comments sit-stand with impaired hip flexion R PT-OP-J Posture/Palpation/Skin Start: 10/13/24 12:44 Freq: Status: Active Protocol: Document 10/13/24 12:46 KW (Rec: 10/13/24 15:36 KW Laptop) Posture Evaluation Comments Posture Comments atrophy noted supraspinatus L flattened L and T spine decreased gluteal bulk Skin Assessment Other Assessments Skin Assessment skin: no sclerotic lesions noted over any joint Comments PT-OP-K Range of Motion Start: 10/13/24 12:44 Freq: Status: Active Protocol: Document 10/13/24 12:46 KW (Rec: 10/13/24 15:36 KW Laptop) Cervical Spine Range of Motion Cervical Spine Active Degrees Testing Position Sitting Flexion 50 Extension 20 Rotation Left 25 Rotation Right 30 Lateral Flexion Left 12 Lateral Flexion 10 Right ROM Limitations Soft Tissue Tightness Shoulder Goniometric Range of Motion Shoulder left Shoulder ROM WFL No Testing Position Supine Flexion 150 External Rotation at 85 45 degrees Abduction Internal Rotation 80 Hip Goniometric Range of Motion Hip right Hip ROM WFL No Testing Position Supine Flexion w/Knee 90 Flexed Straight Leg Raise 75 Internal Rotation 10 External Rotation 45 PT-OP-L Special Tests Start: 10/13/24 12:44 Freq: Status: Active Protocol: Document 10/13/24 12:46 KW (Rec: 10/13/24 15:36 KW Laptop) Special Tests Hip Special Tests Scour Test Test Results Positive Comments Right hip PT-OP-M Strength Start: 10/13/24 12:44 Freq: Status: Active Protocol: Document 10/13/24 12:46 KW (Rec: 10/13/24 15:36 KW Laptop) Shoulder Strength Shoulder Manual Muscle Testing Right Flexion 4 Good Extension 4 Good Abduction (C5) 4 Good External Rotation 4 Good Internal Rotation 4 Good Horizontal Abduction 4 Good Horizontal Adduction 4 Good Left Flexion 4- Good- Extension 4- Good- Abduction (C5) 4- Good- External Rotation 4- Good- Internal Rotation 4- Good- Horizontal Abduction 4- Good- Horizontal Adduction 4- Good- Hip Strength Hip Manual Muscle Testing Right Flexion (L2) 4- Good- Extension (S1) 4- Good- Abduction 4- Good- PT-OP-Q Treatments Start: 10/13/24 12:44 Freq: Status: Active Protocol: Document 10/13/24 12:46 KW (Rec: 10/13/24 15:36 KW Laptop) Therapeutic Exercises Supine Exercises supine ball exercises Supine Exercise Name hamstring curls, bridge, LTR - handout not issued Side bilateral shoulder AAROM Supine Exercise Name cane AAROM B shoulder flex/ext/abd/add - handout not issued Side bilateral Self-Care/Home Management Treatment Education Patient Education Body Mechanics,Home Exercise Program,Joint Protection, Pain Management,Posture Other Education anti-inflammatory diet, consider discussing FODMAP diet with MD or hospital cleaner education re: joint mobility for joint health. Recommend water walking, or low impact water aerobics KT applied for L shoulder support. Instructed in use and removal, verna if any skin irritation. PT-OP-T Assessment and Plan Start: 10/13/24 12:44 Freq: Status: Active Protocol: Document 10/13/24 12:46 KW (Rec: 10/13/24 15:36 KW Laptop) Physical Therapy Assessment Rehab Potential Rehabilitation Fair Potential Evaluation Complexity Number of Personal 1-2 Factors/ Comorbidities Number of Body 3 Systems Impaired Clinical Evolving Presentation at Evaluation Goals Three Impairment elevated pain Short Term Goal (STG L shoulder pain and R hip pain reduce 25% ) STG Duration 6 weeks Two Impairment lack of pool program Short Term Goal (STG patient returns to pool for modified lap swim or water ) aerobics, or identifies stationary bike for aerobic since he cannot do a walking program at present STG Duration 6 weeks One Impairment lack of HEP Short Term Goal (STG patient demonstrates indep with HEP ) STG Duration 6 weeks Assessment Summary Assessment 73 yo male with onset of psoriatic arthritis. He has only had one visit with his stem frazer. he is very frustrated and deflated by this diagnosis. Given his MRI findings of his hip and shoulder, recommend he see an orthopedic surgeon for a consult as well. He will benefit from skilled PT to start a HEP to address deficits in ROM, strength, mobility in order to reduce pain and maximize function. Strongly recommend a referral to nutrition counseling to support this disease process thru diet as well. Only six PT visits approved by insurance at this time. Physical Therapy Plan Frequency and Duration Frequency of 1x/Week Treatment Duration of 6 treatment (weeks) Plan of Care Start 10/13/24 Date Plan of Care End 12/13/24 Date Therapeutic Interventions Therapeutic Gait Training,Home Exercise Program,Joint Mobilizations Interventions ,Manual Therapy,Neuromuscular Re-education,Patient/ Caregiver Education,Self-Care/Home Management,Soft Tissue Mobilization,Taping,Therapeutic Activities, Therapeutic Exercises Next Visit Focus/Plan Next Note Type Treatment Note Next Visit Plan Nu step shuttle UE thera-band exercises, please give for HEP
--- NOTE | 2024-10-13 16:41 | PT.OPPOC ---
Physical, Occupational & Speech Therapy At [facility] Current Diagnoses Other chronic pain (10/13/24) Pain in left shoulder (10/13/24) Pain in right hip (10/13/24) Cervicalgia (10/13/24) Sprain of ligaments of cervical spine, sequela (10/13/24) Visit Care Team Role Provider Type Venkat Lehman DO Attending Provider Physician Family Provider Primary Care Provider Referring Provider Specialty: Family Practice Address: [address] [place] [address], [facility] Email: Plan Of Care PT-OP-B Current Condition Start: 10/13/24 12:44 Freq: Status: Active Protocol: Document 10/13/24 12:46 KW (Rec: 10/13/24 15:36 KW Laptop) Current Condition History of Current Condition Onset Date chronic Current Complaints B shoulder B hips, spine History of Current patient with dx of psoriatic arthritis, comes to PT Condition carrying results from L shoulder MRI and hip MRI showing 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 His pain is such that it has impacted his sleep, no longer can swim in the pool due to shoulder pain. He is being followed by rheumatology, is taking medication for the arthritis as well as Yokasta injections. He has a difficult time getting into see his provider. He also reports a trauma in younger years that caused compression Fx of T-spine and a Sx disorder back in the 80s. He is retired, [employer]- [employer]. Prior Treatments and prior PT at [facility] for the spine pain Tests Future Testing and December, back to rheumatology Treatments Planned PT-OP-T Assessment and Plan Start: 10/13/24 12:44 Freq: Status: Active Protocol: Document 10/13/24 12:46 KW (Rec: 10/13/24 15:36 KW Laptop) Physical Therapy Assessment Rehab Potential Rehabilitation Fair Potential Evaluation Complexity Number of Personal 1-2 Factors/ Comorbidities Number of Body 3 Systems Impaired Clinical Evolving Presentation at Evaluation Goals Three Impairment elevated pain Short Term Goal (STG L shoulder pain and R hip pain reduce 25% ) STG Duration 6 weeks Two Impairment lack of pool program Short Term Goal (STG patient returns to pool for modified lap swim or water ) aerobics, or identifies stationary bike for aerobic since he cannot do a walking program at present STG Duration 6 weeks One Impairment lack of HEP Short Term Goal (STG patient demonstrates indep with HEP ) STG Duration 6 weeks Assessment Summary Assessment 73 yo male with onset of psoriatic arthritis. He has only had one visit with his auto brake technician. he is very frustrated and deflated by this diagnosis. Given his MRI findings of his hip and shoulder, recommend he see an orthopedic surgeon for a consult as well. He will benefit from skilled PT to start a HEP to address deficits in ROM, strength, mobility in order to reduce pain and maximize function. Strongly recommend a referral to nutrition counseling to support this disease process thru diet as well. Only six PT visits approved by insurance at this time. Physical Therapy Plan Frequency and Duration Frequency of 1x/Week Treatment Duration of 6 treatment (weeks) Plan of Care Start 10/13/24 Date Plan of Care End 12/13/24 Date Therapeutic Interventions Therapeutic Gait Training,Home Exercise Program,Joint Mobilizations Interventions ,Manual Therapy,Neuromuscular Re-education,Patient/ Caregiver Education,Self-Care/Home Management,Soft Tissue Mobilization,Taping,Therapeutic Activities, Therapeutic Exercises Next Visit Focus/Plan Next Note Type Treatment Note Next Visit Plan Nu step shuttle UE thera-band exercises, please give for HEP Plan of Care Dates Plan of Care Start Date 10/13/24 Plan of Care End Date 12/13/24 Electronically Signed by: Hilaria Brito, PT 10/13/24 4744 If you are in agreement with this Plan of Care, please return a signed and dated copy. I have reviewed this Plan of Care and certify that the skilled therapy services above are required to meet the patient?s needs. Physician Signature Date Printed Name and Credentials Clinical Instructor Signature Printed Name and Credentials
--- NOTE | 2024-10-20 09:06 | PT.OTN ---
Current Diagnoses Other chronic pain (10/20/24) Pain in left shoulder (10/20/24) Pain in right hip (10/20/24) Cervicalgia (10/20/24) Sprain of ligaments of cervical spine, sequela (10/20/24) Physical Therapy Treatment Note PT-OP-A Visit Information Start: 10/13/24 12:44 Freq: Status: Active Protocol: Document 10/20/24 08:22 KW (Rec: 10/20/24 09:06 KW Laptop) Out-Patient Physical Therapy Visit Information Visit Information Visit Type Treatment Note Visit Start Time 08:15 Visit Stop Time 09:00 Visit Number 2/6 Evaluation Information Evaluation Date 10/13/24 Precautions Precautions none PT-OP-B Current Condition Start: 10/13/24 12:44 Freq: Status: Active Protocol: Document 10/13/24 12:46 KW (Rec: 10/13/24 15:36 KW Laptop) Current Condition History of Current Condition Onset Date chronic Current Complaints B shoulder B hips, spine History of Current patient with dx of psoriatic arthritis, comes to PT Condition carrying results from L shoulder MRI and hip MRI showing 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 His pain is such that it has impacted his sleep, no longer can swim in the pool due to shoulder pain. He is being followed by rheumatology, is taking medication for the arthritis as well as Yokasta injections. He has a difficult time getting into see his provider. He also reports a trauma in younger years that caused compression Fx of T-spine and a Sx disorder back in the 80s. He is retired, [employer]. Prior Treatments and prior PT at [facility] for the spine pain Tests Future Testing and December, back to rheumatology Treatments Planned PT-OP-C Subjective Start: 10/13/24 12:44 Freq: Status: Active Protocol: Document 10/20/24 08:22 KW (Rec: 10/20/24 09:06 KW Laptop) OP-PT Subjective Patient Comments Patient Comments saw rpg developer, may start on another medication. shoulder is better, hip is worse plans on [address] [place] Wednesday Patient Questionnaires Lower Extremity Functional Scale LEFS Score 36 LEFS Impairment 40 to 59% Impaired (Score 32-47) Quick Dash- Upper Extremity Quick Dash UE Score 29.5 Quick Dash UE 20 to 39% Impaired (Score 20-39) Impairment OP-PT Pain Assessment Location T spine Intensity 5 Scale Used Numeric (0 - 10) Description Aching,Burning,Cramping Frequency Frequent Pain Aggravating Position,ADL's,Activity,Exercise,Standing,Sitting, Factors Walking Hips Intensity 8 Scale Used Numeric (0 - 10) Description Aching,Burning,Cramping,Dull L shoulder Intensity 5 Scale Used Numeric (0 - 10) Description Aching,Burning,Cramping,Dull PT-OP-E Functional Tests Start: 10/13/24 12:44 Freq: Status: Active Protocol: Document 10/13/24 12:46 KW (Rec: 10/13/24 15:36 KW Laptop) Functional Tests Apley's Scratch Test Action 1- Left pain Action 1- Right no pain Action 2- Left pain Action 2- Right no pain Action 3- Left pain Action 3- Right no pain PT-OP-F Manual Assessment Start: 10/13/24 12:44 Freq: Status: Active Protocol: Document 10/13/24 12:46 KW (Rec: 10/13/24 15:36 KW Laptop) Manual Assessments Joint Mobility Assessment Joint Mobility pain at end of joint ROM hip flexion, IR/ER R Assessment pain at end range L shoulder FF/ABD/ER/IR PT-OP-G Mobility & Gait Start: 10/13/24 12:44 Freq: Status: Active Protocol: Document 10/13/24 12:46 KW (Rec: 10/13/24 15:36 KW Laptop) OP Gait Assessment Assistive Devices Assistive Device None Gait Deviations General Gait Pattern Antalgic,Decreased Stride Length Comments Gait Comments sit-stand with impaired hip flexion R PT-OP-J Posture/Palpation/Skin Start: 10/13/24 12:44 Freq: Status: Active Protocol: Document 10/13/24 12:46 KW (Rec: 10/13/24 15:36 KW Laptop) Posture Evaluation Comments Posture Comments atrophy noted supraspinatus L flattened L and T spine decreased gluteal bulk Skin Assessment Other Assessments Skin Assessment skin: no sclerotic lesions noted over any joint Comments PT-OP-K Range of Motion Start: 10/13/24 12:44 Freq: Status: Active Protocol: Document 10/13/24 12:46 KW (Rec: 10/13/24 15:36 KW Laptop) Cervical Spine Range of Motion Cervical Spine Active Degrees Testing Position Sitting Flexion 50 Extension 20 Rotation Left 25 Rotation Right 30 Lateral Flexion Left 12 Lateral Flexion 10 Right ROM Limitations Soft Tissue Tightness Shoulder Goniometric Range of Motion Shoulder left Shoulder ROM WFL No Testing Position Supine Flexion 150 External Rotation at 85 45 degrees Abduction Internal Rotation 80 Hip Goniometric Range of Motion Hip right Hip ROM WFL No Testing Position Supine Flexion w/Knee 90 Flexed Straight Leg Raise 75 Internal Rotation 10 External Rotation 45 PT-OP-L Special Tests Start: 10/13/24 12:44 Freq: Status: Active Protocol: Document 10/13/24 12:46 KW (Rec: 10/13/24 15:36 KW Laptop) Special Tests Hip Special Tests Scour Test Test Results Positive Comments Right hip PT-OP-M Strength Start: 10/13/24 12:44 Freq: Status: Active Protocol: Document 10/13/24 12:46 KW (Rec: 10/13/24 15:36 KW Laptop) Shoulder Strength Shoulder Manual Muscle Testing Right Flexion 4 Good Extension 4 Good Abduction (C5) 4 Good External Rotation 4 Good Internal Rotation 4 Good Horizontal Abduction 4 Good Horizontal Adduction 4 Good Left Flexion 4- Good- Extension 4- Good- Abduction (C5) 4- Good- External Rotation 4- Good- Internal Rotation 4- Good- Horizontal Abduction 4- Good- Horizontal Adduction 4- Good- Hip Strength Hip Manual Muscle Testing Right Flexion (L2) 4- Good- Extension (S1) 4- Good- Abduction 4- Good- PT-OP-Q Treatments Start: 10/13/24 12:44 Freq: Status: Active Protocol: Document 10/20/24 08:22 KW (Rec: 10/20/24 09:06 KW Laptop) Therapeutic Exercises Supine Exercises supine ball exercises Supine Exercise Name hamstring curls, bridge, LTR - handout issued Side bilateral shoulder AAROM Supine Exercise Name cane AAROM B shoulder flex/ext/abd/add - handout issued Side bilateral Standing Exercises B UE ext with band Standing Exercise B UE Ext with band, handout issued Name Resistance blue Reps/Minutes 2 x 10 gastroc stretch Standing Exercise standing stretch with MAGGIE wedge Name Neuro Re-Education Treatment Other Activities tape to shld Details L UE support with tape, followed by wall slides with pillow case x 10 Self-Care/Home Management Treatment Education Patient Education Body Mechanics,Home Exercise Program,Joint Protection, Pain Management,Posture Other Education anti-inflammatory diet, consider discussing FODMAP diet with MD or retail business manager education re: joint mobility for joint health. Recommend water walking, or low impact water aerobics KT applied for L shoulder support. Instructed in use and removal, verna if any skin irritation. PT-OP-T Assessment and Plan Start: 10/13/24 12:44 Freq: Status: Active Protocol: Document 10/20/24 08:22 KW (Rec: 10/20/24 09:06 KW Laptop) Physical Therapy Assessment Rehab Potential Rehabilitation Fair Potential Evaluation Complexity Number of Personal 1-2 Factors/ Comorbidities Number of Body 3 Systems Impaired Clinical Evolving Presentation at Evaluation Goals Three Impairment elevated pain Short Term Goal (STG L shoulder pain and R hip pain reduce 25% ) STG Duration 6 weeks Two Impairment lack of pool program Short Term Goal (STG patient returns to pool for modified lap swim or water ) aerobics, or identifies stationary bike for aerobic since he cannot do a walking program at present STG Duration 6 weeks One Impairment lack of HEP Short Term Goal (STG patient demonstrates indep with HEP ) STG Duration 6 weeks Assessment Summary Assessment improved tolerance to ther-ex today. Did not tolerate nu step so switched to supine with ball AROM, better. Shoulder did well with tape. Encouragement given to move, despite pain, use SPC for support with gait. Improved mechanics on stairs after brief training. Physical Therapy Plan Frequency and Duration Frequency of 1x/Week Treatment Duration of 6 treatment (weeks) Plan of Care Start 10/13/24 Date Plan of Care End 12/13/24 Date Therapeutic Interventions Therapeutic Gait Training,Home Exercise Program,Joint Mobilizations Interventions ,Manual Therapy,Neuromuscular Re-education,Patient/ Caregiver Education,Self-Care/Home Management,Soft Tissue Mobilization,Taping,Therapeutic Activities, Therapeutic Exercises Next Visit Focus/Plan Next Note Type Treatment Note Next Visit Plan Nu step shuttle UE thera-band exercises, please give for HEP
--- NOTE | 2024-10-27 09:50 | PT.OTN ---
Current Diagnoses Other chronic pain (10/27/24) Pain in left shoulder (10/27/24) Pain in right hip (10/27/24) Cervicalgia (10/27/24) Sprain of ligaments of cervical spine, sequela (10/27/24) Physical Therapy Treatment Note PT-OP-A Visit Information Start: 10/13/24 12:44 Freq: Status: Active Protocol: Document 10/27/24 09:04 SP (Rec: 10/27/24 09:53 SP [id number]) Out-Patient Physical Therapy Visit Information Visit Information Visit Type Treatment Note Visit Start Time 09:04 Visit Stop Time 09:50 Visit Number 3/6 Number of MEDICAL LABORATORY SCIENTIST Visits 1 Evaluation Information Evaluation Date 10/13/24 Precautions Precautions none PT-OP-B Current Condition Start: 10/13/24 12:44 Freq: Status: Active Protocol: Document 10/13/24 12:46 KW (Rec: 10/13/24 15:36 KW Laptop) Current Condition History of Current Condition Onset Date chronic Current Complaints B shoulder B hips, spine History of Current patient with dx of psoriatic arthritis, comes to PT Condition carrying results from L shoulder MRI and hip MRI showing 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 His pain is such that it has impacted his sleep, no longer can swim in the pool due to shoulder pain. He is being followed by rheumatology, is taking medication for the arthritis as well as Yokasta injections. He has a difficult time getting into see his provider. He also reports a trauma in younger years that caused compression Fx of T-spine and a Sx disorder back in the 80s. He is retired, [employer]- [employer]. Prior Treatments and prior PT at [facility] for the spine pain Tests Future Testing and December, back to rheumatology Treatments Planned PT-OP-C Subjective Start: 10/13/24 12:44 Freq: Status: Active Protocol: Document 10/27/24 09:04 SP (Rec: 10/27/24 09:53 SP [id number]) OP-PT Subjective Patient Comments Patient Comments Pt reports has a large than our 85cm tball home so thinks to high to perform HEP as last tx. FOrgot about the cane exercises. Is taking RA meds about 5 weeks for support pain relief, not sure if seeing significant improvement. Sometimes when walks L hurts more than R. He reports looked up online exercises to do for strengthening his shoulder- holding weight out in front of him making small circles and wondered if could be beneficial? PT-OP-E Functional Tests Start: 10/13/24 12:44 Freq: Status: Active Protocol: Document 10/13/24 12:46 KW (Rec: 10/13/24 15:36 KW Laptop) Functional Tests Apley's Scratch Test Action 1- Left pain Action 1- Right no pain Action 2- Left pain Action 2- Right no pain Action 3- Left pain Action 3- Right no pain PT-OP-F Manual Assessment Start: 10/13/24 12:44 Freq: Status: Active Protocol: Document 10/13/24 12:46 KW (Rec: 10/13/24 15:36 KW Laptop) Manual Assessments Joint Mobility Assessment Joint Mobility pain at end of joint ROM hip flexion, IR/ER R Assessment pain at end range L shoulder FF/ABD/ER/IR PT-OP-G Mobility & Gait Start: 10/13/24 12:44 Freq: Status: Active Protocol: Document 10/13/24 12:46 KW (Rec: 10/13/24 15:36 KW Laptop) OP Gait Assessment Assistive Devices Assistive Device None Gait Deviations General Gait Pattern Antalgic,Decreased Stride Length Comments Gait Comments sit-stand with impaired hip flexion R PT-OP-J Posture/Palpation/Skin Start: 10/13/24 12:44 Freq: Status: Active Protocol: Document 10/13/24 12:46 KW (Rec: 10/13/24 15:36 KW Laptop) Posture Evaluation Comments Posture Comments atrophy noted supraspinatus L flattened L and T spine decreased gluteal bulk Skin Assessment Other Assessments Skin Assessment skin: no sclerotic lesions noted over any joint Comments PT-OP-K Range of Motion Start: 10/13/24 12:44 Freq: Status: Active Protocol: Document 10/13/24 12:46 KW (Rec: 10/13/24 15:36 KW Laptop) Cervical Spine Range of Motion Cervical Spine Active Degrees Testing Position Sitting Flexion 50 Extension 20 Rotation Left 25 Rotation Right 30 Lateral Flexion Left 12 Lateral Flexion 10 Right ROM Limitations Soft Tissue Tightness Shoulder Goniometric Range of Motion Shoulder left Shoulder ROM WFL No Testing Position Supine Flexion 150 External Rotation at 85 45 degrees Abduction Internal Rotation 80 Hip Goniometric Range of Motion Hip right Hip ROM WFL No Testing Position Supine Flexion w/Knee 90 Flexed Straight Leg Raise 75 Internal Rotation 10 External Rotation 45 PT-OP-L Special Tests Start: 10/13/24 12:44 Freq: Status: Active Protocol: Document 10/13/24 12:46 KW (Rec: 10/13/24 15:36 KW Laptop) Special Tests Hip Special Tests Scour Test Test Results Positive Comments Right hip PT-OP-M Strength Start: 10/13/24 12:44 Freq: Status: Active Protocol: Document 10/13/24 12:46 KW (Rec: 10/13/24 15:36 KW Laptop) Shoulder Strength Shoulder Manual Muscle Testing Right Flexion 4 Good Extension 4 Good Abduction (C5) 4 Good External Rotation 4 Good Internal Rotation 4 Good Horizontal Abduction 4 Good Horizontal Adduction 4 Good Left Flexion 4- Good- Extension 4- Good- Abduction (C5) 4- Good- External Rotation 4- Good- Internal Rotation 4- Good- Horizontal Abduction 4- Good- Horizontal Adduction 4- Good- Hip Strength Hip Manual Muscle Testing Right Flexion (L2) 4- Good- Extension (S1) 4- Good- Abduction 4- Good- PT-OP-Q Treatments Start: 10/13/24 12:44 Freq: Status: Active Protocol: Document 10/27/24 09:04 SP (Rec: 10/27/24 09:53 SP [id number]) Therapeutic Exercises Supine Exercises supine ball exercises Supine Exercise Name hamstring curls, bridge (LE ext), LTR - reviewed Side bilateral Equipment Used 85cm tball (thinks his larger home- challenge perform with Buy With Fetchger ball) Reps/Minutes 15 reps each Comments cued pnfree range and slow pacing shoulder AAROM Supine Exercise Name Reviewed-B shoulder flex/ext/abd/add Side bilateral Resistance AAROM Equipment Used yellow dowel- under hand/humeral ER (FF & ABD) Reps/Minutes 10 reps each Comments cued for slight protraction, inferior scapular glide- less discomfort Standing Exercises Protraction ABCs Standing Exercise added to HEP (declined HO)- reivewed activity found Name online with use TB Side left Resistance Pavel home: TB #3 iqugmiut green Reps/Minutes A-Z, slow pacing- good response Comments cued for elongated posture/chin tuck, scap retraction/ depression neutral B UE ext with band Standing Exercise B UE Ext with band Name Side bilateral Resistance blue>TB #3 iqugmiut green Reps/Minutes 2 x 10 Comments cued for elongated posture/chin tuck, scap retraction/ depression neutral Manual Therapy Treatment Consent Patient gave verbal Yes consent for manual treatment Joint Mobilizations L shld Joint 1. GH Jt 2. scapulothoracic Jt Direction 1. posterior & inferior 2. retraction & depression Grade II Comments hook lying: Manual with education on jt mobility fluid increased GH space and Scap glide to support decreased shld pain with neutral alignment. Self-Care/Home Management Treatment Education Patient Education Body Mechanics,Home Exercise Program,Joint Protection, Pain Management,Posture Other Education Much time spent education during manual and between activities of anatomy of GH Jt, shld mechanics with ADL /swimming motion, possible repetitive motions swimming without strengthening land support HEP over the years potential contribute to shoulder pain and lack of motion, review MRI shld labral tear how relates to his function and cuing humeral ER and slight protraction during ther ex for improved AAROM and RTC UE strengthening motion and trial return to prior activities when tolerated. Pt verbalized little better understanding of cuing corrections and strengthening can help with motion get better. MEDICAL LABORATORY SCIENTIST discussed swimming less aggressive large motions, more elementary back stroke, breast stroke if responds well, unsure if front and back stroke will be comfortable due to motion at this time in supine painful AAROM. MEDICAL LABORATORY SCIENTIST discussed ex saw online circles out in front could be beneficial with weight eventually but at this time need more proximal strengthening and ROM first. PT-OP-T Assessment and Plan Start: 10/13/24 12:44 Freq: Status: Active Protocol: Document 10/27/24 09:04 SP (Rec: 10/27/24 09:53 SP [id number]) Physical Therapy Assessment Goals Three Impairment elevated pain Short Term Goal (STG L shoulder pain and R hip pain reduce 25% ) STG Duration 6 weeks Two Impairment lack of pool program Short Term Goal (STG patient returns to pool for modified lap swim or water ) aerobics, or identifies stationary bike for aerobic since he cannot do a walking program at present STG Duration 6 weeks One Impairment lack of HEP Short Term Goal (STG patient demonstrates indep with HEP ) STG Duration 6 weeks Assessment Summary Assessment Pt verbalized better understanding of shoulder movement with cues for under hand corrections during FF and ABD with slight protraction decrease GH irritation with slow pacing movement hooklying today. He report less pain with correction standing resisted HEP and addition of an exercise he wished to incorporate circles out front standing but under instruction use of TB anchored behind him with good postural alignment did well with no pain, not sure understood completely reasoning band vs use DB at this time, will continue education future tx. Will beneift from continued skilled PT for B shld and hip to improved mobiltiy and pain reduction. Physical Therapy Plan Frequency and Duration Frequency of 1x/Week Treatment Duration of 6 treatment (weeks) Plan of Care Start 10/13/24 Date Plan of Care End 12/13/24 Date Therapeutic Interventions Therapeutic Gait Training,Home Exercise Program,Joint Mobilizations Interventions ,Manual Therapy,Neuromuscular Re-education,Patient/ Caregiver Education,Self-Care/Home Management,Soft Tissue Mobilization,Taping,Therapeutic Activities, Therapeutic Exercises Next Visit Focus/Plan Next Note Type Treatment Note Next Visit Plan Recheck appts and if will need further appt request, insurance approval. Recheck HEP: TB protraction ABCs added last tx and Ext, supine cane humeral ER hold. PT POC: Trial Nu step again if althea, shuttle, UE thera- band exercises, please give for HEP
--- NOTE | 2024-10-31 08:19 | PT.OTN ---
Current Diagnoses Other chronic pain (10/31/24) Pain in left shoulder (10/31/24) Pain in right hip (10/31/24) Cervicalgia (10/31/24) Sprain of ligaments of cervical spine, sequela (10/31/24) Physical Therapy Treatment Note PT-OP-A Visit Information Start: 10/13/24 12:44 Freq: Status: Active Protocol: Document 10/31/24 07:32 SP (Rec: 10/31/24 08:20 SP [id number]) Out-Patient Physical Therapy Visit Information Visit Information Visit Type Treatment Note Visit Note PT to update how many visits wanting approval >6 visits approved next visit Visit Start Time 07:32 Visit Stop Time 08:19 Visit Number 4/6 Number of KILN MECHANIC Visits 2 Evaluation Information Evaluation Date 10/13/24 Precautions Precautions none PT-OP-B Current Condition Start: 10/13/24 12:44 Freq: Status: Active Protocol: Document 10/13/24 12:46 KW (Rec: 10/13/24 15:36 KW Laptop) Current Condition History of Current Condition Onset Date chronic Current Complaints B shoulder B hips, spine History of Current patient with dx of psoriatic arthritis, comes to PT Condition carrying results from L shoulder MRI and hip MRI showing 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 His pain is such that it has impacted his sleep, no longer can swim in the pool due to shoulder pain. He is being followed by rheumatology, is taking medication for the arthritis as well as Yokasta injections. He has a difficult time getting into see his provider. He also reports a trauma in younger years that caused compression Fx of T-spine and a Sx disorder back in the 80s. He is retired, [employer]- [employer]. Prior Treatments and prior PT at [facility] for the spine pain Tests Future Testing and December, back to rheumatology Treatments Planned PT-OP-C Subjective Start: 10/13/24 12:44 Freq: Status: Active Protocol: Document 10/31/24 07:32 SP (Rec: 10/31/24 08:20 SP [id number]) OP-PT Subjective Patient Comments Patient Comments Pt reports R hip not so severe today but stil bother some, can't walk as far as used to. HE states L shld pain woke him up at 3 am and had hard time getting back to sleep, taking NSAIDs and hasn't started any other medication given by Software Development Coordinator to see what meds helping. Has Prednisone but hasn't started it. PT-OP-E Functional Tests Start: 10/13/24 12:44 Freq: Status: Active Protocol: Document 10/13/24 12:46 KW (Rec: 10/13/24 15:36 KW Laptop) Functional Tests Apley's Scratch Test Action 1- Left pain Action 1- Right no pain Action 2- Left pain Action 2- Right no pain Action 3- Left pain Action 3- Right no pain PT-OP-F Manual Assessment Start: 10/13/24 12:44 Freq: Status: Active Protocol: Document 10/13/24 12:46 KW (Rec: 10/13/24 15:36 KW Laptop) Manual Assessments Joint Mobility Assessment Joint Mobility pain at end of joint ROM hip flexion, IR/ER R Assessment pain at end range L shoulder FF/ABD/ER/IR PT-OP-G Mobility & Gait Start: 10/13/24 12:44 Freq: Status: Active Protocol: Document 10/13/24 12:46 KW (Rec: 10/13/24 15:36 KW Laptop) OP Gait Assessment Assistive Devices Assistive Device None Gait Deviations General Gait Pattern Antalgic,Decreased Stride Length Comments Gait Comments sit-stand with impaired hip flexion R PT-OP-J Posture/Palpation/Skin Start: 10/13/24 12:44 Freq: Status: Active Protocol: Document 10/13/24 12:46 KW (Rec: 10/13/24 15:36 KW Laptop) Posture Evaluation Comments Posture Comments atrophy noted supraspinatus L flattened L and T spine decreased gluteal bulk Skin Assessment Other Assessments Skin Assessment skin: no sclerotic lesions noted over any joint Comments PT-OP-K Range of Motion Start: 10/13/24 12:44 Freq: Status: Active Protocol: Document 10/13/24 12:46 KW (Rec: 10/13/24 15:36 KW Laptop) Cervical Spine Range of Motion Cervical Spine Active Degrees Testing Position Sitting Flexion 50 Extension 20 Rotation Left 25 Rotation Right 30 Lateral Flexion Left 12 Lateral Flexion 10 Right ROM Limitations Soft Tissue Tightness Shoulder Goniometric Range of Motion Shoulder left Shoulder ROM WFL No Testing Position Supine Flexion 150 External Rotation at 85 45 degrees Abduction Internal Rotation 80 Hip Goniometric Range of Motion Hip right Hip ROM WFL No Testing Position Supine Flexion w/Knee 90 Flexed Straight Leg Raise 75 Internal Rotation 10 External Rotation 45 PT-OP-L Special Tests Start: 10/13/24 12:44 Freq: Status: Active Protocol: Document 10/13/24 12:46 KW (Rec: 10/13/24 15:36 KW Laptop) Special Tests Hip Special Tests Scour Test Test Results Positive Comments Right hip PT-OP-M Strength Start: 10/13/24 12:44 Freq: Status: Active Protocol: Document 10/13/24 12:46 KW (Rec: 10/13/24 15:36 KW Laptop) Shoulder Strength Shoulder Manual Muscle Testing Right Flexion 4 Good Extension 4 Good Abduction (C5) 4 Good External Rotation 4 Good Internal Rotation 4 Good Horizontal Abduction 4 Good Horizontal Adduction 4 Good Left Flexion 4- Good- Extension 4- Good- Abduction (C5) 4- Good- External Rotation 4- Good- Internal Rotation 4- Good- Horizontal Abduction 4- Good- Horizontal Adduction 4- Good- Hip Strength Hip Manual Muscle Testing Right Flexion (L2) 4- Good- Extension (S1) 4- Good- Abduction 4- Good- PT-OP-Q Treatments Start: 10/13/24 12:44 Freq: Status: Active Protocol: Document 10/31/24 07:32 SP (Rec: 10/31/24 08:20 SP [id number]) Gym Equipment Shuttle Recovery Bilateral squat Details cued slow pacing control-no pain good tiring challenge Resistance 75# 3 navy bands Reps/Time 20 reps Therapeutic Exercises Supine Exercises Piriformis Stretch Supine Exercise Name trialed in PT Side right Reps/Minutes 60sec hold supine ball exercises Supine Exercise Name hamstring curls, bridge (LE ext), LTR - reviewed Side bilateral Equipment Used 75cm tball Reps/Minutes 15 reps each Comments cued pnfree range and slow pacing shoulder AAROM Supine Exercise Name Reviewed-B shoulder flex/ext/abd/add Side bilateral Resistance AAROM Equipment Used yellow dowel- under hand/humeral ER (FF & ABD) Reps/Minutes 10 reps each Comments cued for slight protraction, inferior scapular glide- less discomfort Standing Exercises Protraction ABCs Standing Exercise Revewed activity found online with use TB Name Side left Resistance Pavel home: TB #3 ely [place] Reps/Minutes A-Z, slow pacing- good response Comments cued for elongated posture/chin tuck, scap retraction/ depression neutral B UE ext with band Standing Exercise B UE Ext with band- challenging scap stabilization Name today Side bilateral Resistance blue>TB #3 ely [place] Reps/Minutes 2 x 10 Comments cued for elongated posture/chin tuck, scap retraction/ depression neutral Manual Therapy Treatment Consent Patient gave verbal Yes consent for manual treatment Soft Tissue Mobilization L shld Body Location pec, bicep, coracobrac, UT, Deltoid, Suprasp Mobilization Type Rolling,Sustained Pressure,Other Intensity/Depth Moderate Body Position Hooklying Comments gentle STMs, MWM PROM>AAROM humeral IR/ER varying deg humeral ABD Joint Mobilizations R hip Direction lateral, anteromedial, inferior Comments strap use- good response no pain L shld Joint 1. GH Jt 2. scapulothoracic Jt Direction 1. posterior & inferior 2. retraction & depression Grade II Comments hook lying: Manual with education on jt mobility fluid increased GH space and Scap glide to support decreased shld pain with neutral alignment. Manual Techniques PROM L shld Type FF, ABD, IR/ER Comments within pnfree range Self-Care/Home Management Treatment Education Patient Education Joint Protection,Pain Management,Posture,Safety Other Education Continued education on anatomy of R hip and L shld MRI how might be affecting his mobility and pain. Suggested can call primary care physician and ask for orthopedic referral for more specialized feedback of continued concerns not seeing significant improvement. PT-OP-T Assessment and Plan Start: 10/13/24 12:44 Freq: Status: Active Protocol: Document 10/31/24 07:32 SP (Rec: 10/31/24 08:20 SP [id number]) Physical Therapy Assessment Goals Three Impairment elevated pain Short Term Goal (STG L shoulder pain and R hip pain reduce 25% ) STG Duration 6 weeks Two Impairment lack of pool program Short Term Goal (STG patient returns to pool for modified lap swim or water ) aerobics, or identifies stationary bike for aerobic since he cannot do a walking program at present STG Duration 6 weeks One Impairment lack of HEP Short Term Goal (STG patient demonstrates indep with HEP ) STG Duration 6 weeks Assessment Summary Assessment Pt demonstrates challenge with scapular stabilization this tx during resisted shld ext L>R today, reports pain anterior shld. Reports improved movement use cane HEP post manual. Continued extra time providing education on anatomy of L shld and R hip use of skeleton for visual support understanding of mechanics of mobility challenges. Physical Therapy Plan Frequency and Duration Frequency of 1x/Week Treatment Duration of 6 treatment (weeks) Plan of Care Start 10/13/24 Date Plan of Care End 12/13/24 Date Therapeutic Interventions Therapeutic Gait Training,Home Exercise Program,Joint Mobilizations Interventions ,Manual Therapy,Neuromuscular Re-education,Patient/ Caregiver Education,Self-Care/Home Management,Soft Tissue Mobilization,Taping,Therapeutic Activities, Therapeutic Exercises Next Visit Focus/Plan Next Note Type Treatment Note Next Visit Plan Next visit: PT respond to request for more visits >6, 30 day PN by 11/12. Offer [facility] if considering further specialist feedback for L shld/R hip more local. Recheck HEP: TB protraction ABCs and Ext, supine cane PT POC: Trial Nu step again if althea, Progress ROM and HEP UE thera-band exercises: Next: humeral IR/ ER or walk outs
--- NOTE | 2024-11-03 11:59 | PT.OTN ---
Current Diagnoses Other chronic pain (11/03/24) Pain in left shoulder (11/03/24) Pain in right hip (11/03/24) Cervicalgia (11/03/24) Sprain of ligaments of cervical spine, sequela (11/03/24) Physical Therapy Treatment Note PT-OP-A Visit Information Start: 10/13/24 12:44 Freq: Status: Active Protocol: Document 11/03/24 09:52 KW (Rec: 11/03/24 11:58 KW Laptop) Out-Patient Physical Therapy Visit Information Visit Information Visit Type Treatment Note Visit Note PCP MD referred to orthopedist for consult re: shoulder and hip Visit Start Time 09:50 Visit Stop Time 10:30 Visit Number 5/6 Number of PRESS WASHER Visits 2 Evaluation Information Evaluation Date 10/13/24 Precautions Precautions none PT-OP-B Current Condition Start: 10/13/24 12:44 Freq: Status: Active Protocol: Document 10/13/24 12:46 KW (Rec: 10/13/24 15:36 KW Laptop) Current Condition History of Current Condition Onset Date chronic Current Complaints B shoulder B hips, spine History of Current patient with dx of psoriatic arthritis, comes to PT Condition carrying results from L shoulder MRI and hip MRI showing 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 His pain is such that it has impacted his sleep, no longer can swim in the pool due to shoulder pain. He is being followed by rheumatology, is taking medication for the arthritis as well as Yokasta injections. He has a difficult time getting into see his provider. He also reports a trauma in younger years that caused compression Fx of T-spine and a Sx disorder back in the 80s. He is retired, [employer]- [employer]. Prior Treatments and prior PT at [facility] for the spine pain Tests Future Testing and December, back to rheumatology Treatments Planned PT-OP-C Subjective Start: 10/13/24 12:44 Freq: Status: Active Protocol: Document 11/03/24 09:52 KW (Rec: 11/03/24 11:58 KW Laptop) OP-PT Subjective Patient Comments Patient Comments patient wants to go kayaking, not sure if shoulder will tolerate also plans to ride his E-bike OP-PT Pain Assessment Location Hips Intensity 6 Scale Used Numeric (0 - 10) Description Aching,Burning,Cramping,Dull L shoulder Intensity 3 Scale Used Numeric (0 - 10) Description Aching,Burning,Cramping,Dull PT-OP-E Functional Tests Start: 10/13/24 12:44 Freq: Status: Active Protocol: Document 10/13/24 12:46 KW (Rec: 10/13/24 15:36 KW Laptop) Functional Tests Apley's Scratch Test Action 1- Left pain Action 1- Right no pain Action 2- Left pain Action 2- Right no pain Action 3- Left pain Action 3- Right no pain PT-OP-F Manual Assessment Start: 10/13/24 12:44 Freq: Status: Active Protocol: Document 10/13/24 12:46 KW (Rec: 10/13/24 15:36 KW Laptop) Manual Assessments Joint Mobility Assessment Joint Mobility pain at end of joint ROM hip flexion, IR/ER R Assessment pain at end range L shoulder FF/ABD/ER/IR PT-OP-G Mobility & Gait Start: 10/13/24 12:44 Freq: Status: Active Protocol: Document 10/13/24 12:46 KW (Rec: 10/13/24 15:36 KW Laptop) OP Gait Assessment Assistive Devices Assistive Device None Gait Deviations General Gait Pattern Antalgic,Decreased Stride Length Comments Gait Comments sit-stand with impaired hip flexion R PT-OP-J Posture/Palpation/Skin Start: 10/13/24 12:44 Freq: Status: Active Protocol: Document 10/13/24 12:46 KW (Rec: 10/13/24 15:36 KW Laptop) Posture Evaluation Comments Posture Comments atrophy noted supraspinatus L flattened L and T spine decreased gluteal bulk Skin Assessment Other Assessments Skin Assessment skin: no sclerotic lesions noted over any joint Comments PT-OP-K Range of Motion Start: 10/13/24 12:44 Freq: Status: Active Protocol: Document 10/13/24 12:46 KW (Rec: 10/13/24 15:36 KW Laptop) Cervical Spine Range of Motion Cervical Spine Active Degrees Testing Position Sitting Flexion 50 Extension 20 Rotation Left 25 Rotation Right 30 Lateral Flexion Left 12 Lateral Flexion 10 Right ROM Limitations Soft Tissue Tightness Shoulder Goniometric Range of Motion Shoulder left Shoulder ROM WFL No Testing Position Supine Flexion 150 External Rotation at 85 45 degrees Abduction Internal Rotation 80 Hip Goniometric Range of Motion Hip right Hip ROM WFL No Testing Position Supine Flexion w/Knee 90 Flexed Straight Leg Raise 75 Internal Rotation 10 External Rotation 45 PT-OP-L Special Tests Start: 10/13/24 12:44 Freq: Status: Active Protocol: Document 10/13/24 12:46 KW (Rec: 10/13/24 15:36 KW Laptop) Special Tests Hip Special Tests Scour Test Test Results Positive Comments Right hip PT-OP-M Strength Start: 10/13/24 12:44 Freq: Status: Active Protocol: Document 10/13/24 12:46 KW (Rec: 10/13/24 15:36 KW Laptop) Shoulder Strength Shoulder Manual Muscle Testing Right Flexion 4 Good Extension 4 Good Abduction (C5) 4 Good External Rotation 4 Good Internal Rotation 4 Good Horizontal Abduction 4 Good Horizontal Adduction 4 Good Left Flexion 4- Good- Extension 4- Good- Abduction (C5) 4- Good- External Rotation 4- Good- Internal Rotation 4- Good- Horizontal Abduction 4- Good- Horizontal Adduction 4- Good- Hip Strength Hip Manual Muscle Testing Right Flexion (L2) 4- Good- Extension (S1) 4- Good- Abduction 4- Good- PT-OP-Q Treatments Start: 10/13/24 12:44 Freq: Status: Active Protocol: Document 11/03/24 09:52 KW (Rec: 11/03/24 11:58 KW Laptop) Cardio Equipment Upper Body Ergometer (UBE) Duration (Minutes) 4 Therapeutic Exercises Supine Exercises supine ball exercises Supine Exercise Name hamstring curls, bridge (LE ext), LTR - Side bilateral Equipment Used 75cm tball Reps/Minutes 15 reps each Comments cued pnfree range and slow pacing shoulder AAROM Supine Exercise Name B shoulder flex/ext/abd/add Side bilateral Resistance AAROM Equipment Used yellow dowel- under hand/humeral ER (FF & ABD) Reps/Minutes 10 reps each Comments cued for slight protraction, inferior scapular glide- less discomfort Standing Exercises Protraction ABCs Side left Resistance Pavel home: TB #3 [place] Reps/Minutes A-Z, slow pacing- good response Comments cued for elongated posture/chin tuck, scap retraction/ depression neutral B UE ext with band Standing Exercise B UE Ext with band- challenging scap stabilization Name today Side bilateral Resistance blue>TB #3 [place] Reps/Minutes 2 x 10 Comments cued for elongated posture/chin tuck, scap retraction/ depression neutral Manual Therapy Treatment Consent Patient gave verbal Yes consent for manual treatment Soft Tissue Mobilization L shld Body Location pec, bicep, coracobrac, UT, Deltoid, Suprasp Mobilization Type Rolling,Sustained Pressure,Other Intensity/Depth Moderate Body Position Hooklying Comments gentle STMs, MWM PROM>AAROM humeral IR/ER varying deg humeral ABD Joint Mobilizations L shld Joint 1. GH Jt 2. scapulothoracic Jt Direction 1. posterior & inferior 2. retraction & depression Grade II Comments hook lying: Manual with education on jt mobility fluid increased GH space and Scap glide to support decreased shld pain with neutral alignment. Manual Techniques PROM L shld Type FF, ABD, IR/ER Comments within pnfree range Self-Care/Home Management Treatment Education Patient Education Joint Protection,Pain Management,Posture,Safety Other Education Ed: regarding in/out of adalidk PT-OP-T Assessment and Plan Start: 10/13/24 12:44 Freq: Status: Active Protocol: Document 11/03/24 09:52 KW (Rec: 11/03/24 11:58 KW Laptop) Physical Therapy Assessment Rehab Potential Rehabilitation Fair Potential Evaluation Complexity Number of Personal 1-2 Factors/ Comorbidities Number of Body 3 Systems Impaired Clinical Evolving Presentation at Evaluation Goals Three Impairment elevated pain Short Term Goal (STG L shoulder pain and R hip pain reduce 25% ) STG Duration 6 weeks Two Impairment lack of pool program Short Term Goal (STG patient returns to pool for modified lap swim or water ) aerobics, or identifies stationary bike for aerobic since he cannot do a walking program at present STG Duration 6 weeks One Impairment lack of HEP Short Term Goal (STG patient demonstrates indep with HEP ) STG Duration 6 weeks Assessment Summary Assessment recommend last visit with PT on 11/07 then HEP until seen by ortho MD. Patient has not made significant gains with PT, strongly recommend mental health support for change in lifestyle, managing chronic pain Physical Therapy Plan Frequency and Duration Frequency of 1x/Week Treatment Duration of 6 treatment (weeks) Plan of Care Start 10/13/24 Date Plan of Care End 12/13/24 Date Therapeutic Interventions Therapeutic Gait Training,Home Exercise Program,Joint Mobilizations Interventions ,Manual Therapy,Neuromuscular Re-education,Patient/ Caregiver Education,Self-Care/Home Management,Soft Tissue Mobilization,Taping,Therapeutic Activities, Therapeutic Exercises Next Visit Focus/Plan Next Note Type Treatment Note Next Visit Plan finalize HEP, hold PT for now. if new referral from Ortho, then will request more visits based off of that referral.
--- NOTE | 2024-11-08 18:30 | PT.OPDS ---
Current Diagnoses Other chronic pain (11/03/24) Pain in left shoulder (11/03/24) Pain in right hip (11/03/24) Cervicalgia (11/03/24) Sprain of ligaments of cervical spine, sequela (11/03/24) Visit Care Team Role Provider Type Venkat Lehman DO Attending Provider Physician Family Provider Primary Care Provider Referring Provider Specialty: Family Practice Address: [address] [place] [address], [facility] Email: Visit Number Visit Number 09/12 Discharge Summary PT-OP-B Current Condition Start: 10/13/24 12:44 Freq: Status: Active Protocol: Document 10/13/24 12:46 KW (Rec: 10/13/24 15:36 KW Laptop) Current Condition History of Current Condition Onset Date chronic Current Complaints B shoulder B hips, spine History of Current patient with dx of psoriatic arthritis, comes to PT Condition carrying results from L shoulder MRI and hip MRI showing 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 His pain is such that it has impacted his sleep, no longer can swim in the pool due to shoulder pain. He is being followed by rheumatology, is taking medication for the arthritis as well as Yokasta injections. He has a difficult time getting into see his provider. He also reports a trauma in younger years that caused compression Fx of T-spine and a Sx disorder back in the 80s. He is retired, [employer]. Prior Treatments and prior PT at [facility] for the spine pain Tests Future Testing and December, back to rheumatology Treatments Planned PT-OP-C Subjective Start: 10/13/24 12:44 Freq: Status: Active Protocol: Document 11/03/24 09:52 KW (Rec: 11/03/24 11:58 KW Laptop) OP-PT Subjective Patient Comments Patient Comments patient wants to go kayaking, not sure if shoulder will tolerate also plans to ride his E-bike OP-PT Pain Assessment Location Hips Intensity 6 Scale Used Numeric (0 - 10) Description Aching,Burning,Cramping,Dull L shoulder Intensity 3 Scale Used Numeric (0 - 10) Description Aching,Burning,Cramping,Dull PT-OP-E Functional Tests Start: 10/13/24 12:44 Freq: Status: Active Protocol: Document 10/13/24 12:46 KW (Rec: 10/13/24 15:36 KW Laptop) Functional Tests Apley's Scratch Test Action 1- Left pain Action 1- Right no pain Action 2- Left pain Action 2- Right no pain Action 3- Left pain Action 3- Right no pain PT-OP-F Manual Assessment Start: 10/13/24 12:44 Freq: Status: Active Protocol: Document 10/13/24 12:46 KW (Rec: 10/13/24 15:36 KW Laptop) Manual Assessments Joint Mobility Assessment Joint Mobility pain at end of joint ROM hip flexion, IR/ER R Assessment pain at end range L shoulder FF/ABD/ER/IR PT-OP-G Mobility & Gait Start: 10/13/24 12:44 Freq: Status: Active Protocol: Document 10/13/24 12:46 KW (Rec: 10/13/24 15:36 KW Laptop) OP Gait Assessment Assistive Devices Assistive Device None Gait Deviations General Gait Pattern Antalgic,Decreased Stride Length Comments Gait Comments sit-stand with impaired hip flexion R PT-OP-J Posture/Palpation/Skin Start: 10/13/24 12:44 Freq: Status: Active Protocol: Document 10/13/24 12:46 KW (Rec: 10/13/24 15:36 KW Laptop) Posture Evaluation Comments Posture Comments atrophy noted supraspinatus L flattened L and T spine decreased gluteal bulk Skin Assessment Other Assessments Skin Assessment skin: no sclerotic lesions noted over any joint Comments PT-OP-K Range of Motion Start: 10/13/24 12:44 Freq: Status: Active Protocol: Document 10/13/24 12:46 KW (Rec: 10/13/24 15:36 KW Laptop) Cervical Spine Range of Motion Cervical Spine Active Degrees Testing Position Sitting Flexion 50 Extension 20 Rotation Left 25 Rotation Right 30 Lateral Flexion Left 12 Lateral Flexion 10 Right ROM Limitations Soft Tissue Tightness Shoulder Goniometric Range of Motion Shoulder left Shoulder ROM WFL No Testing Position Supine Flexion 150 External Rotation at 85 45 degrees Abduction Internal Rotation 80 Hip Goniometric Range of Motion Hip right Hip ROM WFL No Testing Position Supine Flexion w/Knee 90 Flexed Straight Leg Raise 75 Internal Rotation 10 External Rotation 45 PT-OP-L Special Tests Start: 10/13/24 12:44 Freq: Status: Active Protocol: Document 10/13/24 12:46 KW (Rec: 10/13/24 15:36 KW Laptop) Special Tests Hip Special Tests Scour Test Test Results Positive Comments Right hip PT-OP-M Strength Start: 10/13/24 12:44 Freq: Status: Active Protocol: Document 10/13/24 12:46 KW (Rec: 10/13/24 15:36 KW Laptop) Shoulder Strength Shoulder Manual Muscle Testing Right Flexion 4 Good Extension 4 Good Abduction (C5) 4 Good External Rotation 4 Good Internal Rotation 4 Good Horizontal Abduction 4 Good Horizontal Adduction 4 Good Left Flexion 4- Good- Extension 4- Good- Abduction (C5) 4- Good- External Rotation 4- Good- Internal Rotation 4- Good- Horizontal Abduction 4- Good- Horizontal Adduction 4- Good- Hip Strength Hip Manual Muscle Testing Right Flexion (L2) 4- Good- Extension (S1) 4- Good- Abduction 4- Good- PT-OP-T Assessment and Plan Start: 10/13/24 12:44 Freq: Status: Active Protocol: Document 11/08/24 18:29 KW (Rec: 11/08/24 18:30 KW Laptop) Physical Therapy Assessment Goals Three Impairment elevated pain Short Term Goal (STG L shoulder pain and R hip pain reduce 25% ) STG Duration 6 weeks Two Impairment lack of pool program Short Term Goal (STG patient returns to pool for modified lap swim or water ) aerobics, or identifies stationary bike for aerobic since he cannot do a walking program at present STG Duration 6 weeks One Impairment lack of HEP Short Term Goal (STG patient demonstrates indep with HEP ) STG Duration 6 weeks Assessment Summary Assessment no significant change with PT. DC PT and back to MD Physical Therapy Plan Discharge Physical Therapy Discharge Reasons Plateau in Progress Discharge Comments back to MD, ortho surgeon
== END 2024-11-13 09:57 | disposition home or self-care (01) ==
LOC: PHYS 09:45
PROVIDERS: Family Provider Family Medicine; PCP Family Medicine; Referring Provider Family Medicine; Visit Provider Family Medicine
DX: M54.2 Cervicalgia (principal); G89.29 Other chronic pain; M25.551 Pain in right hip; S13.4XXS Sprain of ligaments of cervical spine, sequela; M25.512 Pain in left shoulder
CPT/HCPCS: 97110; 97112; 97140; 97162; 97535

== ENCOUNTER → 2024-12-13 07:13 | Outpatient (CLI) | payer OTHER, SELFPAY ==
[2024-12-13 07:40] LABS: Add Manual Diff / Slide Review NO; Hematocrit 45.3 % (41-53); Hemoglobin 15.6 g/dL (13.5-17.5); Lymphocytes Absolute Auto 1600 /uL (1100-4500); Mean Corpuscular HGB Conc 34.5 % (30-36); Mean Corpuscular Hemoglobin 32.4 PG (26-34); Mean Corpuscular Volume 93.8 fL (80-100); Platelet Count 209 X10^3/uL (150-400)
[2024-12-13 08:06] LABS: Alanine Aminotransferase 24 IU/L (<50); Albumin 4.6 g/dL (3.5-5.0); Albumin Globulin Ratio 1.6 (1.0-2.8); Alkaline Phosphatase 53 U/L (38-126); Blood Urea Nitrogen 20 mg/dL (9-20); Calcium 9.4 mg/dL (8.4-10.2); Carbon Dioxide 28 mmol/L (22-32); Chloride 100 mmol/L (98-107); Cholesterol 151 mg/dL (140-199); Estimated Glomerular Filt Rate > 60 mL/min (>60); Globulin 2.8 g/dL (1.7-4.1); Glucose 96 mg/dL (70-99); HDL Cholesterol 40 mg/dL (40-60); HEMOLYSIS < 15 (0-50); Potassium 4.0 mmol/L (3.4-5.1); Sodium 138 mmol/L (137-145); Total Protein 7.4 g/dL (6.3-8.2); Triglycerides 107 mg/dL (35-150)
== END ==
PROVIDERS: PCP Family Medicine; Referring Provider Family Medicine; Visit Provider Family Medicine
DX: E78.2 Mixed hyperlipidemia (principal); I10 Essential (primary) hypertension; Z12.5 Encounter for screening for malignant neoplasm of prostate; M75.52 Bursitis of left shoulder; L40.50 Arthropathic psoriasis, unspecified; M16.0 Bilateral primary osteoarthritis of hip; Z68.24 Body mass index [BMI] 24.0-24.9, adult
CPT/HCPCS: 20610; 36415; 73030; 80053; 80061; 85025; 99213; G0103; J1010